=== PATIENT | female | born 1955 | race Caucasian/White ===

== ENCOUNTER 2021-10-13 10:50 | Outpatient (CLI) | payer MEDICARE, SELFPAY ==
[2021-10-13 11:29] LABS: Basophils Percent Auto 0.3 % (0.2-1.2); Eosinophils Absolute Auto 0.1 K/mm3 (0-0.3); Eosinophils Percent Auto 1.9 % (0-4.4); Hematocrit 37.5 % (37.0-47.0); Hemoglobin 12.2 g/dL (12.0-15.0); Immature Granulocyte Absolute 0.02 K/mm3 (0.00-0.031); Immature Granulocyte Percent A 0.3 % (0-0.5); Lymphocytes Absolute Auto 2.18 K/mm3 (0.9-3.2); Mean Corpuscular HGB Conc 32.5 g/dl (32-36); Mean Corpuscular Hemoglobin 30.4 pg (26-34); Mean Corpuscular Volume 93.5 fl (80-100); Mean Platelet Volume 10.2 fl (7.4-10.4); Monocytes Absolute Auto 0.4 K/mm3 (0.1-0.6); Monocytes Percent Auto 7.5 % (2.6-8.5); Platelet Count Result 266 k/mm3 (150-375); Red Blood Count 4.01 M/mm3 (4.2-5.4); Red Cell Distribution Width 13.1 % (11.5-14.5); White Blood Count 5.7 K/mm3 (4.5-10.0)
--- NOTE | 2021-10-13 11:30 | ECG_ITS ---
Measurements Intervals [place] Rate: 68 P: 0 ME: 172 QRS: -17 QRSD: 93 T: 38 QT: 401 QTc: 427 Interpretive Statements SINUS RHYTHM WITH OCCASIONAL VENTRICULAR PREMATURE COMPLEXES BASELINE ARTIFACT NONSPECIFIC T-WAVE ABNORMALITY BORDERLINE ECG NO PREVIOUS ECG AVAILABLE FOR COMPARISON Electronically Signed On 10-13-2021 14:40:36 CDT by Asif Garcia M.D.
[2021-10-13 11:41] LABS: Anion Gap 8 mmol/L (8-16); Blood Urea Nitrogen 19 mg/dL (7-17); Carbon Dioxide 25 mmol/L (22-30); Chloride 103 mmol/L (98-107); Estimated Glomerular Filt Rate > 60; Glucose 101 mg/dL (65-110); Potassium 3.8 mmol/L (3.4-5.0); Sodium 136 mmol/L (137-145)
== END 2021-10-13 10:51 | disposition home or self-care (01) ==
PROVIDERS: Anesthesiology; PCP Internal Medicine Geriatric Medicine; Visit Provider Obstetrics & Gynecology
DX: N81.6 Rectocele (principal); I10 Essential (primary) hypertension; Z51.81 Encounter for therapeutic drug level monitoring
CPT/HCPCS: 36415; 80048; 85025; 86850; 86900; 86901; 93005

== ENCOUNTER 2021-10-17 01:18 | Day surgery (SDC) | payer MEDICARE, SELFPAY ==
[2021-10-03 14:53] VITALS: BMI 37.0
--- NOTE | 2021-10-03 15:35 | PC.NURSE ---
Report to the Outpatient Waiting Room, entrance under the green pavilion located off [facility], at time __12:00PM on date __10/17/21 . OR Time: _2:00PM . - You and your visitor will be asked a series of questions to screen for COVID 19 for your protection. - Only one visitor is allowed at this time. - The patient visitor is requested to leave or wait in car when not with patient. - A mask is required within the hospital. Patients may have clear liquids (water, carbonated beverages, clear teas, apple juice) until 3 hours prior to surgery with a maximum of 20 ounces. - No food from midnight until time of surgery - Infants may have breast milk until 4 hours before surgery, infant formula 6 hours prior to surgery. - Children will be allowed to drink immediately following surgery. If applicable, please bring a bottle or sippy cup to assist with drinking. Juice, water, soda, and popsicles are readily available. For infants on formula, please bring formula the day of surgery. Pacifiers are allowed. Take the following medications with a SIP of water the morning of surgery: ___LEVOTHYROXINE Medications to discontinue per physician ___ALL VITAMINS/SUPPLEMENTS 3 DAYS PRE-OP Date to take last dose 10/13/21 Please no make-up, nail tristanian, hairspray, perfume, deodorant, or body powder the day of surgery. No jewelry (including any body piercings) or valuables the day of surgery, leave them at home. Please take a shower or bath the night before, or the morning of, surgery with an antibacterial soap. Wear comfortable, loose fitting clothing. Children are encouraged to wear pajamas. - Jewelry must be removed prior to entering the operating room. Rings and piercings that are not removed may be cut off. - The hospital will not accept responsibility for valuables. - Please leave all valuables, including medications, at home the day of surgery. If you are going home after surgery, a licensed skidder driver must drive you home. - NO public transportation without another adult. - We recommend that an adult stay with you for 24 hours following discharge. - We also recommend that you do not drive, make important decision, drink alcoholic beverages, or take any drugs that were not prescribed by your health care provider for at least 24 hours after your discharge time. For Pediatric surgeries, we recommend two adults accompany the child home (only one inside the building at this time). Follow any additional instructions given to you from your surgeon. If you or anyone in your household have experienced Covid symptoms in the past week, please notify your surgeon or the nurse liaison at the phone number below for possible testing. Telephone instructions given to ___PATIENT and asked if any additional questions and then verbalized understanding. Patient advised to call surgeon office or pre surgery nurse liaison [phone] if any additional questions.
--- NOTE | 2021-10-14 06:57 | P.HP_ITS ---
H&P: HPI History of Present Illness Date/Time: 10/14/21 06:57 Chief Complaint: Symptomatic rectocele Narrative: This is a 65 year 3 para 3 status post hysterectomy who will undergo the posterior repair secondary to symptomatic rectocele. She is not sexually active but finds that she is again needs to splint in order have bowel movement. Risks and benefits of the procedure including vaginal shortening were reviewed. She had all questions answered and asked to proceed PMFSH Social History Social History Smoking status: Never smoker Alcohol intake: current Substance use: never [facility] Spiritual care concerns: No Meds Home Medications and Allergies Home Medications Medication Instructions Recorded Confirmed Type acetaminophen 650 mg 1,300 mg PO QAM 10/03/21 10/03/21 History tablet,extended release ergocalciferol (vitamin D2) 1,250 1 cap PO WEEKLY 10/03/21 10/03/21 History mcg (50,000 unit) capsule esomeprazole magnesium 20 mg 20 mg PO QAM 10/03/21 10/03/21 History capsule,delayed release (Nexium) geriatric multivitamin-min 1 tablet PO DAILY 10/03/21 10/03/21 History levothyroxine 125 mcg tablet 1 tablet PO QAM 10/03/21 10/03/21 History lisinopril 10 1 tablet PO QAM 10/03/21 10/03/21 History mg-hydrochlorothiazide 12.5 mg tablet vit A 7,160 unit-vit C 113 mg-vit 1 tablet PO DAILY 10/03/21 10/03/21 History E 100 [id number] tablet Allergies Allergy/AdvReac Type Severity Reaction Status Date / Time No Known Allergies Allergy Unverified 10/03/21 14:48 Exam Const: General: cooperative, healthy appearing and comfortable Nutritional Appearance: average body habitus and well nourished Orientation/consciousness: oriented to person, oriented to place and oriented to time Resp: Auscultation: clear to auscultation bilaterally GI: Percussion: Yes normal to percussion : External Female Exam: normal external appearance Speculum Exam - Vagina: other (Moderate size rectocele noted) and Abnormal introitus Speculum Exam - Cervix: Cervix absent Bimanual exam- vagina & uterus: uterus absent Bimanual Exam- Adnexa, other: normal adnexae Assessment and Plan Assessment and plan (1) Rectocele: Code(s): N81.6 - Rectocele Status: Acute Plan Posterior repair
[2021-10-17] VITALS (7 sets, daily range): BP systolic 135–161; BP diastolic 69–91; PULSE 56–70; RESP 13–18; TEMP 36.1–36.6; O2SAT 95–100
--- NOTE | 2021-10-17 06:45 | WPDHPUPDATE1 ---
History and Physical Update Update Date/Time: 10/17/21 06:45 History and Physical has been reviewed, including an updated exam of the patient. There are NO changes in the patient's condition. Risks, benefits, and alternatives have been discussed and questions answered. Patient agrees to proceed with procedure.
[2021-10-17] MEDS: LACTATED RINGERS 1,000 ML 30 ML IV CONT (12:26)
[2021-10-17] MEDS: ACETAMINOPHEN 500 MG TABLET 1000 MG PO (12:27)
[2021-10-17] MEDS: KETOROLAC 15 MG/ML VIAL (*BKC) IV PUSH (12:27)
--- NOTE | 2021-10-17 12:58 | WPDANESEPPF ---
Anes - Initial Pre Proc Eval Procedure: Operation Date: 10/17/21 14:00 Proposed Procedures p Rectocele Repair - Skip Thomson MD Date/Time: 10/17/21 12:58 Surgeon: Skip Thomson MD Pre Op Diagnosis: Rectocele Patient Data Age: 65 Gender: F Height: 1.6 m Weight: 96.3 kg Last Vital Signs Temp 36.1 C L 10/17/21 12:08 Pulse 65 10/17/21 12:08 Resp 18 10/17/21 12:08 BP 155/73 H 10/17/21 12:08 Pulse Ox 100 10/17/21 12:08 O2 Del Method Room Air 10/17/21 12:08 Allergies Allergy/AdvReac Type Severity Reaction Status Date / Time No Known Allergies Allergy Unverified 10/17/21 12:13 Home Medications Medication Instructions Recorded Confirmed Type acetaminophen 650 mg 1,300 mg PO QAM 10/03/21 10/17/21 History tablet,extended release ergocalciferol (vitamin D2) 1,250 1 cap PO WEEKLY 10/03/21 10/17/21 History mcg (50,000 unit) capsule esomeprazole magnesium 20 mg 20 mg PO QAM 10/03/21 10/17/21 History capsule,delayed release (Nexium) geriatric multivitamin-min 1 tablet PO DAILY 10/03/21 10/17/21 History levothyroxine 125 mcg tablet 1 tablet PO QAM 10/03/21 10/17/21 History lisinopril 10 1 tablet PO QAM 10/03/21 10/17/21 History mg-hydrochlorothiazide 12.5 mg tablet vit A 7,160 unit-vit C 113 mg-vit 1 tablet PO DAILY 10/03/21 10/17/21 History E 100 [id number] tablet hydrocodone 5 mg-acetaminophen 325 1 tablet PO Q4H PRN pain #20 tabs 10/17/21 Rx mg tablet Patient hx anesthesia problems: none Family hx anesthesia problems: none Results Review: All pre-operative results and documents have been reviewed as part of the pre-operative evaluation. [facility] Past Medical History Medical History (Updated 10/17/21 @ 12:59 by Skip Wood MD) Obesity KIRSTEN (obstructive sleep apnea) Surgical History Surgical History (Updated 06/24/22 @ 12:59 by Skip Wood MD) H/O thyroidectomy H/O: hysterectomy Social History Social History Smoking status: Never smoker Alcohol intake: current Substance use: never Living arrangements: with family Additional living arrangements comments: [facility] Spiritual care concerns: No Anes - Eval Final PreProcedure Day of Procedure 10/17/21 12:58 Patient weight: obese Heart: regular rate and rhythm Lungs: clear to auscultation Airway: Mallampati scale class II and other (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 Informed Consent: The patient's anesthetic plan and its attendant risks and benefits were discussed with the patient/family/POA. Questions were solicited and answers provided to the satisfaction of the patient/family/POA.
[2021-10-17] MEDS: ceFAZolin 2 GM/D5W 50 ML 2 GM/50 ML BAG IVPB (14:40)
--- NOTE | 2021-10-17 15:20 | W.PM.PROC2 ---
Procedure Note - Detailed Date of Procedure 10/17/21 Pre-op Diagnosis Rectocele Post-op Diagnosis Same Procedure Performed Posterior repair Surgeon Skip Thomson MD Anesthesia General Indications 65-year-old female with a small rectocele which she deemed to be symptomatic Findings Small rectocele was present. There was significant scarring from her deliveries before in the past which made this a bit more difficult than normal. Description of Procedure The patient was prepped draped in normal sterile fashion placed in dorsal lithotomy position. Under excellent general will anesthetic the perineum was grasped with Allis clamps. Incision was made in a claude shape. The mucosa of the vagina was opened to the top of the vagina. By sharply dissecting and the use and occasional cautery for bleeders. The mucosal tissue was very poorly estrogenized and quite scarred. Once a good dissection was noted lateral rectus the rectal muscle recti muscles were brought together with the serial [id number] 0 Vicryl sh. The excess mucosa was then removed and the mucosa then closed with continuous running 0 Vicryl from superior to inferior portion. The vagina was packed with Premarin soaked to the packing. She tolerated the procedure well blood loss was estimated [id number] all sponge, needle, instrument counts were correct. Estimated Blood Loss 200 Drains No Packing Yes Pathology Yes Complications No immediate complications Condition Stable Disposition PACU
[2021-10-17] MEDS: oxyCODONE (*CRX) 5 MG/5 ML ORAL SOLN IR PO (16:35)
== END 2021-10-17 17:01 | disposition home or self-care (01) ==
PROVIDERS: PCP Internal Medicine Geriatric Medicine; Visit Provider Obstetrics & Gynecology
PROC: (CPT 57260; principal; 2021-10-17 14:00)
DX: N81.6 Rectocele (principal); G47.33 Obstructive sleep apnea (adult) (pediatric); E89.0 Postprocedural hypothyroidism; E66.9 Obesity, unspecified; Z68.37 Body mass index [BMI] 37.0-37.9, adult
CPT/HCPCS: 57250; A9270; J0690; J1100; J1170; J1885; J2250; J2405; J2704; J3010; J7120